=== PATIENT | female | born 1985 | race Caucasian/White ===

== ENCOUNTER 2016-09-14 11:33 | Emergency (ER) | payer BC ==
[2016-09-14 11:41] VITALS: BP 132/84
--- NOTE | 2016-09-14 11:59 | UC ---
Respiratory Complaint HPI - HPI Summary HPI Summary: cough, congestion, sore throat for 4 days. - History of Current Complaint Chief Complaint: UCRespiratory Stated Complaint: HEAD CONGESTION Time Seen by Provider: 09/14/16 11:46 Hx Obtained From: Patient Hx Last Menstrual Period: 08/18/16 Onset/Duration: Gradual Onset, Lasting Days Timing: Constant Severity Initially: Mild Severity Currently: Moderate Aggravating Factors: Deep Breaths, Recumbent Position Associated Signs And Symptoms: Positive: Fever, Chills, URI, Nasal Congestion, Hoarseness, Sinus Discomfort. Negative: Wheezing, Hemoptysis, Dizziness, Calf Pain, Calf Swelling, Edema - Allergies/Home Medications Allergies/Adverse Reactions: Allergies Allergy/AdvReac Type Severity Reaction Status Date / Time bees Allergy Difficulty Uncoded 09/14/16 11:41 Breathing chlorine bleach Allergy Difficulty Uncoded 09/14/16 11:41 Breathing PMH/Surg Hx/FS Hx/Imm Hx Previously Healthy: No - asthma. - Surgical History Surgical History: None - Family History Known Family History: Positive: Hypertension, Other - hypothyroidism - Social History Occupation: Employed Full-time Alcohol Use: None Substance Use Type: None Smoking Status (MU): Never Smoked Tobacco Review of Systems All Other Systems Reviewed And Are Negative: Yes Physical Exam Triage Information Reviewed: Yes Appearance: Well-Appearing, Well-Nourished, Obese Vital Signs: Initial Vital Signs Temp 97.4 F 09/14/16 11:36 Pulse 88 09/14/16 11:36 Resp 24 09/14/16 11:36 BP 132/84 09/14/16 11:36 Pulse Ox 98 09/14/16 11:36 Vital Signs Reviewed: Yes Eye Exam: Normal ENT Exam: Normal Neck exam: Normal Neck: Positive: Supple, Nontender, No Lymphadenopathy Respiratory Exam: Other - frequent dry cough. Respiratory: Positive: Chest non-tender, Lungs clear, Normal breath sounds, No respiratory distress, No accessory muscle use. Negative: Respiratory distress, Crackles, Rhonchi, Stridor, Wheezing Cardiovascular Exam: Normal Abdominal Exam: Normal Musculoskeletal Exam: Normal Neurological Exam: Normal Psychological Exam: Normal Skin Exam: Normal UC Diagnostic Evaluation - Laboratory O2 Sat by Pulse Oximetry: 98 Respiratory Course/Dx - Course Course Of Treatment: No signs of asthma flare up or pneumonia. - Differential Dx/Diagnosis Provider Diagnoses: uri. sinus congestion. Discharge - Discharge Plan Condition: Good Disposition: HOME Prescriptions: Acetaminop/Codeine 30 MG TAB* [Tylenol/Codeine 30 MG TAB*] 1 - 2 tab PO Q6H PRN #20 tab MDD 3 PRN Reason: Cough Albuterol HFA INHALER* [Ventolin HFA Inhaler*] 1 - 2 puff INH Q4H PRN #1 mdi PRN Reason: Cough Azithromyxin ELY (NF) [Z-Ely (Zithromax) 250 mg tabs #6] 2 tab PO DAILY #6 tab Referrals: No Primary Care Phys,NOPCP [Primary Care Provider] - (return here if not improving. )
== END 2016-09-14 12:12 | disposition home or self-care (01) ==
LOC: UCCORT 11:33
DX: J06.9 Acute upper respiratory infection, unspecified (principal); R09.81 Nasal congestion; J45.909 Unspecified asthma, uncomplicated; E66.9 Obesity, unspecified
CPT/HCPCS: 99212; G0463

== ENCOUNTER 2017-07-11 01:29 | Emergency (ER) | payer SELFPAY ==
[2017-07-11] MEDS ORDERED: Ibuprofen TAB* 800 MG PO ONE (02:10)
[2017-07-11] MEDS ORDERED: Metoclopramide TAB* 10 MG PO ONE (02:11)
--- NOTE | 2017-07-11 03:55 | ED ---
Abhi Curtis Stephanie, scribed for Андрей Rea MD on 07/11/17 at 0244 . Headache - HPI Summary HPI Summary: The pt is a 32 y/o F presenting to the ED with c/o a bump in the back of her head that began today. The pt denies vomiting. Symptoms include migraine that began a few days ago. The pt states a hx of migraines. She denies taking medications today. She denies recent trauma/fall. LKMP 1 month ago. - History Of Current Complaint Chief Complaint: EDHeadache Stated Complaint: HEADACHE Time Seen by Provider: 07/11/17 01:53 Hx Obtained From: Patient Hx Last Menstrual Period: 08/18/16 Onset/Duration: Gradual Onset, Started hours ago, Still Present Timing: Constant Character: Migraine Location of Headache: Occipital Aggravating Factor: Nothing Allevating Factors: Nothing - Allergies/Home Medications Allergies/Adverse Reactions: Allergies Allergy/AdvReac Type Severity Reaction Status Date / Time bees Allergy Difficulty Uncoded 07/11/17 01:53 Breathing chlorine bleach Allergy Difficulty Uncoded 07/11/17 01:53 Breathing PMH/Surg Hx/FS Hx/Imm Hx Endocrine/Hematology History: Reports: Hx Thyroid Disease - hypo Denies: Hx Diabetes Cardiovascular History: Denies: Hx Hypertension Respiratory History: Reports: Hx Asthma EENT History: Denies: Hx Deafness - Surgical History Surgery Procedure, Year, and Place: dental reconstruction surgery - Immunization History Date of Influenza Vaccine: hsa not received Infectious Disease History: No Infectious Disease History: Denies: Traveled Outside the [place] in Last 30 Days - Family History Known Family History: Positive: Hypertension, Other - hypothyroidism - Social History Occupation: Unemployed Lives: With Family Alcohol Use: None Hx Substance Use: No Substance Use Type: Reports: None Hx Tobacco Use: No Smoking Status (MU): Never Smoked Tobacco Have You Smoked in the Last Year: No Review of Systems Positive: Other - bump on the back of head Negative: Vomiting Positive: Headache All Other Systems Reviewed And Are Negative: Yes Physical Exam - Summary Physical Exam Summary: VITAL SIGNS: Reviewed. GENERAL: Patient is a morbidly obese FEMALE who is lying comfortable in the stretcher. Patient is not in any acute respiratory distress. HEAD AND FACE: No signs of trauma. No ecchymosis, hematomas or skull depressions. No sinus tenderness. EYES: PERRLA, EOMI x 2, No injected conjunctiva, no nystagmus. EARS: Hearing grossly intact. Ear canals and tympanic membranes are within normal limits. MOUTH: Oropharynx within normal limits. NECK: Supple, trachea is midline, no adenopathy, no JVD, no carotid bruit, no c- spine tenderness, neck with full ROM. CHEST: Symmetric, no tenderness at palpation LUNGS: Clear to auscultation bilaterally. No wheezing or crackles. CVS: Regular rate and rhythm, S1 and S2 present, no murmurs or gallops appreciated. ABDOMEN: Soft, non-tender. No signs of distention. No rebound no guarding, and no masses palpated. Bowel sounds are normal. EXTREMITIES: FROM in all major joints, no edema, no cyanosis or clubbing. NEURO: Alert and oriented x 3. No acute neurological deficits. Speech is normal and follows commands. SKIN: Dry and warm Triage Information Reviewed: Yes Vital Signs On Initial Exam: Initial Vitals Temp Pulse Resp BP Pulse Ox 97.7 F 124 20 151/107 95 07/11/17 01:31 07/11/17 01:31 07/11/17 01:31 07/11/17 01:31 07/11/17 01:31 Vital Signs Reviewed: Yes Diagnostics - Vital Signs Vital Signs Temp Pulse Resp BP Pulse Ox 07/11/17 01:31 97.7 F 124 20 151/107 95 - Laboratory Lab Statement: Any lab studies that have been ordered have been reviewed, and results considered in the medical decision making process. - CT Head CT Interpretation: No Acute Changes CT Interpretation Completed By: Radiologist - Normal Exam. ED physician has reviewed this report. Headache Course/Dx - Course Course Of Treatment: The pt is a 32 y/o F presenting to the ED with c/o a bump in the back of her head that began today. The pt denies vomiting. Symptoms include migraine that began a few days ago. The CT head reveals a normal exam. The pt will be dx with JAIMES. - Diagnoses Provider Diagnoses: Headache Discharge - Sign-Out/Discharge Documenting (check all that apply): Discharge - Discharge Plan Condition: Stable Disposition: HOME Patient Education Materials: Migraine Headache (ED) Referrals: [facility] [place] [facility] [place]Outside] - 2 Days Additional Instructions: RETURN TO EMERGENCY DEPARTMENT FOR ANY NEW OR WORSENING SYMPTOMS. The documentation as recorded by the scribe, Abhi,Anastacia accurately reflects the service I personally performed and the decisions made by me, Андрей Rea MD.
[2017-07-11 04:07] VITALS: BP 143/81
--- NOTE | 2017-07-11 07:49 | RAD ---
INDICATION: Headaches COMPARISON: None TECHNIQUE: Noncontrast axial source images were acquired from the skull base to the vertex. FINDINGS: Ventricles/sulci: The ventricles and cisterns are normal in size and configuration for age. Brain parenchyma: There is no focal parenchymal finding, evidence of intracranial mass, or intracranial mass effect. Intracranial hemorrhage:None. Extra-axial spaces: There are no abnormal extra axial fluid collections or evidence of extra-axial mass. Calvarium: There is no calvarial fracture or other calvarial abnormality. Scalp: There is no evidence of scalp or extracalvarial soft tissue abnormality. Paranasal sinuses/mastoid: The paranasal sinuses and mastoid air cells are clear. Other: None. IMPRESSION: NEGATIVE EXAMINATION
== END 2017-07-11 04:05 | disposition home or self-care (01) ==
LOC: ED 01:29
DX: R51 Headache (principal); E03.9 Hypothyroidism, unspecified; J45.909 Unspecified asthma, uncomplicated
CPT/HCPCS: 70450; 99283; A9270-GY